=== PATIENT | female | born 1965 | race Caucasian/White ===

== ENCOUNTER → 2017-09-23 | Outpatient (CLI) | payer OTHER ==
--- NOTE | 2017-09-23 11:33 | RADIOLOGY IMAGING REPORT ---
FACILITY: [facility] - [place] PATIENT NAME: Maryan Parker : 1965 MR: [id number] V: [id number] EXAM DATE: ORDERING PHYSICIAN: SURINDER TIMMONS TECHNOLOGIST: Location: [facility] - [place] Patient: Maryan Parker : 1965 Visit/Account:[id number] Date of Sevice: 09/23/2017 THYROID HISTORY: Right lobe of the thyroid is enlarged compared to the left. Abnormal thyroid labs. Mother wi th thyroid problems. COMPARISON STUDIES: None. FINDINGS: THYROID SIZE Right lobe: 5.4 x 2.1 x 3.3 cm Left lobe: 4.2 x 1.2 x 1.1 cm Isthmus: 0.3 cm THYROID NODULES Right lobe: Heterogeneous solid and cystic nodule involving most the right lobe of the thyroid measur es 4.0 x 1.8 x 2.8 cm and has increased vascular flow. Contained within this dominant nodule is a cir cumscribed, hypoechoic 1.3 x 1.1 cm nodule or pseudonodule (image 26). Left lobe: None. Isthmus: None. THYROID VASCULARITY: Normal. IMPRESSION: 1. 4 cm right thyroid nodule with very low suspicion features, containing a 1.3 cm circumscribed, hyp oechoic nodule or pseudonodule. REFERENCE: 2015 [place] [employer] Management Guidelines for Adult Patients with Thyroid Nodules and D ifferentiated Thyroid Cancer: The [place] [employer] Guidelines Task Force on Thyroid Nodul es and Differentiated Thyroid Cancer. SONOGRAPHIC PATTERNS: * Benign: Purely cystic nodules (no solid component); estimated risk of malignancy <1 percent; no bi opsy recommended. * Very Low Suspicion: Spongiform or partially cystic nodules without any of the sonographic features described in low, intermediate, or high suspicion patterns; estimated risk of malignancy <3 percent; consider FNA at > 2 cm (Observation without FNA is also a reasonable option). * Low Suspicion: Isoechoic or hyperechoic solid nodule, or partially cystic nodule with eccentric so lid areas, without microcalcification, irregular margin or ETE (extra-thyroidal extension), or taller than wide shape; estimated risk of malignancy 5-10 percent; recommend FNA at >1.5 cm. * Intermediate Suspicion: Hypoechoic solid nodule with smooth margins without microcalcifications, E TE (extra-thyroidal extension), or taller than wide shape; estimated risk of malignancy 10-20 percent ; recommend FNA at > 1 cm. * High Suspicion: Solid hypoechoic nodule or solid hypoechoic component of a partially cystic nodule with one or more of the following features: irregular margins (infiltrative, microlobulated), microc alcifications, taller than wide shape, rim calcifications with small extrusive soft tissue component, evidence of ETE (extra-thyroidal extension); estimated risk of malignancy >70-90 percent; recommend FNA at > 1 cm. NOTES: * Although a sonographically suspicious subcentimeter thyroid nodule without evidence of extrathyroi jarvis extension or sonographically suspicious lymph nodes may be observed with close sonographic follow -up rather than pursuing immediate FNA, patient age and preference may modify decision-making. * A > 50% interval increase in nodule volume and/or development of new suspicious sonographic featur es are felt to be a valid reasons for potential re-aspiration of a nodule previously shown to have be nign FNA cytology. Report Dictated By: Denise Diego at 09/23/2017 11:23 AM Report E-Signed By: Denise Diego at 09/23/2017 11:28 AM WSN:[id number]
--- NOTE | 2017-09-26 17:24 | RADIOLOGY IMAGING REPORT ---
FACILITY: [facility] PATIENT NAME: ZARA MACKAY : [id number] MR: [id number] V: [id number] EXAM DATE: ORDERING PHYSICIAN: SURINDER TIMMONS TECHNOLOGIST: Lynnette Awan PROCEDURE:BILATERAL DIGITAL SCREENING MAMMOGRAM WITH CAD ASSISTED INTERPRETATION & 3D TOMOSYNTHESIS COMPARISON:Prior mammograms 10/10/09. INDICATIONS:screening FINDINGS: Very dense heterogeneous fibroglandular tissue is seen throughout the breasts. The parenchymal pattern has remained stable allowing for difference in mammographic technique & patient positioning. There is no evidence of malignant appearing mass, malignant appearing calcifications or other secondary sign of malignancy in either breast. DIAGNOSTIC CATEGORY 1--NEGATIVE. RECOMMENDATIONS: ROUTINE MAMMOGRAM AND CLINICAL EVALUATION. IMPRESSION: BIRADS 1: Negative. No significant abnormality is seen. Dictated by: Angelia Zendejas M.D. on 09/26/2017 at 15:13 Transcribed by: ELIU on 09/26/2017 at 15:17 Approved by: Angelia Zendejas M.D. on 09/26/2017 at 17:24 [facility]
== END ==
LOC: MAMO 03:09
PROVIDERS: ATTEND Family Medicine
DX: Z12.31 Encounter for screening mammogram for malignant neoplasm of breast (principal); E04.8 Other specified nontoxic goiter
CPT/HCPCS: 76536; 77063; 77067

== ENCOUNTER → 2017-11-17 | Day surgery (SDC) | payer OTHER ==
[~2017-11-17] VITALS: Ht 162.6 cm; Wt 53.5 kg
[~2017-11-17] MED LIST: ALB18R INH; BECL10.62 IH; CETI-176 PO; LIDOCAINE/SOD BICARB 8.4% SYR ID ONE; NORMOSOL R SOLN(*) 1000 ML BAG 1,000 ML IV PRN; PROPOFOL EMUL(*) 10MG/ML 20 ML 20 ML ONE
[2017-11-17 10:24] VITALS: BP 140/86
[2017-11-17 11:07] VITALS: BP 91/52
[2017-11-17 11:21] VITALS: BP 108/70
[2017-11-17 11:39] VITALS: BP 111/72
[2017-11-17 11:51] VITALS: BP_SYST 136; BP_SYST 143; BP_DIAS 78; BP_DIAS 84
== END ==
LOC: OR 01:46
PROVIDERS: ATTEND Family Medicine
DX: Z12.11 Encounter for screening for malignant neoplasm of colon (principal)
CPT/HCPCS: 00812; 45378; J2704

== ENCOUNTER → 2018-04-06 | Outpatient (CLI) | payer OTHER ==
[~2018-04-06] MED LIST changes: +ESTR42.5 PV; +FLUC150T40 PO; -LIDOCAINE/SOD BICARB 8.4% SYR ID ONE; +METR-1 PO; -NORMOSOL R SOLN(*) 1000 ML BAG 1,000 ML IV PRN; -PROPOFOL EMUL(*) 10MG/ML 20 ML 20 ML ONE
--- NOTE | 2018-04-06 11:57 | RADIOLOGY IMAGING REPORT ---
FACILITY: [facility] - [place] PATIENT NAME: Maryan Parker : 1965 MR: [id number] V: [id number] EXAM DATE: ORDERING PHYSICIAN: SURINDER TIMMONS TECHNOLOGIST: Location: [facility] - [place] Patient: Maryan Parker : 1965 Visit/Account:[id number] Date of Sevice: 04/06/2018 THYROID HISTORY: Thyroid nodule COMPARISON: September 23, 2017 FINDINGS: SIZE: Right lobe: 5.5 x 2 x 3 cm Left lobe: 4.4 x 1.1 x 1.2 cm Isthmus: 2 mm PARENCHYMA: Homogeneous. NODULES: Right lobe: * There is a hypervascular predominant a solid although partially cystic and well-circumscribed nodu le of mixed echogenicity in the mid to inferior right lobe measuring 4.1 x 1.9 x 2.7 cm. This contai ns a 1.3 cm well-circumscribed hypoechoic nodule or solid nodule. The findings are relatively unchan ged when compared to the prior study Left lobe: * None discrete. Isthmus: * None discrete. VASCULARITY: Increased on the right ADDITIONAL FINDINGS: None. IMPRESSION: There is a hypervascular predominant a solid nodule in the mid to inferior right lobe measuring 4.1 x 1.9 x 2.7 cm that appears relatively unchanged when compared the prior study. If This nodule has no t been previously biopsied and ultrasound-guided fine-needle aspiration recommended REFERENCE: 2015 [place] [employer] Management Guidelines for Adult Patients with Thyroid Nodules and D ifferentiated Thyroid Cancer: The [place] [employer] Guidelines Task Force on Thyroid Nodul es and Differentiated Thyroid Cancer. SONOGRAPHIC PATTERNS: * Benign: Purely cystic nodules (no solid component); estimated risk of malignancy <1 percent; no bi opsy recommended. * Very Low Suspicion: Spongiform or partially cystic nodules without any of the sonographic features described in low, intermediate, or high suspicion patterns; estimated risk of malignancy <3 percent; consider FNA at > 2 cm (Observation without FNA is also a reasonable option). * Low Suspicion: Isoechoic or hyperechoic solid nodule, or partially cystic nodule with eccentric so lid areas, without microcalcification, irregular margin or ETE (extra-thyroidal extension), or taller than wide shape; estimated risk of malignancy 5-10 percent; recommend FNA at >1.5 cm. * Intermediate Suspicion: Hypoechoic solid nodule with smooth margins without microcalcifications, E TE (extra-thyroidal extension), or taller than wide shape; estimated risk of malignancy 10-20 percent ; recommend FNA at > 1 cm. * High Suspicion: Solid hypoechoic nodule or solid hypoechoic component of a partially cystic nodule with one or more of the following features: irregular margins (infiltrative, microlobulated), microc alcifications, taller than wide shape, rim calcifications with small extrusive soft tissue component, evidence of ETE (extra-thyroidal extension); estimated risk of malignancy >70-90 percent; recommend FNA at > 1 cm. NOTES: * Although a sonographically suspicious subcentimeter thyroid nodule without evidence of extrathyroi jarvis extension or sonographically suspicious lymph nodes may be observed with close sonographic follow -up rather than pursuing immediate FNA, patient age and preference may modify decision-making. A > 50% interval increase in nodule volume and/or development of new suspicious sonographic features are felt to be a valid reasons for potential re-aspiration of a nodule previously shown to have benig n FNA cytology. Report Dictated By: Angelia Zendejas MD at 04/06/2018 11:47 AM Report E-Signed By: Angelia Zendejas MD at 04/06/2018 11:52 AM CLARENCEN:[place]
== END ==
LOC: US 01:19
PROVIDERS: ATTEND Family Medicine
DX: E04.2 Nontoxic multinodular goiter (principal)
CPT/HCPCS: 76536

== ENCOUNTER → 2018-04-06 | Outpatient (CLI) | payer OTHER | LOC: LAB 14:46 | PROVIDERS: ATTEND Obstetrics & Gynecology | DX: N89.8 Other specified noninflammatory disorders of vagina (principal) | CPT/HCPCS: 87210 ==

== ENCOUNTER 2018-04-17 11:05 | Outpatient (RCR) | payer OTHER ==
[2018-04-17 11:32] LABS: INR 0.99
--- NOTE | 2018-04-18 13:16 | RADIOLOGY IMAGING REPORT ---
FACILITY: [facility] - [place] PATIENT NAME: Maryan Parker : 1965 MR: [id number] V: [id number] EXAM DATE: ORDERING PHYSICIAN: SURINDER TIMMONS TECHNOLOGIST: Location: [facility] [place] Patient: Maryan Parker : 1965 Visit/Account:[id number] Date of Sevice: 04/18/2018 Ultrasound-guided fine-needle aspiration of the thyroid Indication: Right thyroid nodule. Comparison: Thyroid ultrasound dated 04/06/2018. Findings: After informed consent was obtained, the patient was prepped and draped in standard sterile fashion. A timeout was performed. Local anesthesia was obtained with 1% Xylocaine. Under ultrasound guidance, 4 fine-needle aspiration passes were performed through the right thyroid n odule. There are no immediate complications and the patient tolerated the procedure well. Impression: Successful fine-needle aspiration of the right thyroid nodule. Report Dictated By: Allan Benitez MD at 04/18/2018 1:10 PM Report E-Signed By: Allan Benitez MD at 04/18/2018 1:12 PM WSN:[id number]
== END 2018-04-18 18:00 | disposition home or self-care (01) ==
LOC: US 11:05 → EDSTATUS 04-18 11:05 → US 04-18 18:00
PROVIDERS: ATTEND Family Medicine
DX: Z12.31 Encounter for screening mammogram for malignant neoplasm of breast (principal); E04.8 Other specified nontoxic goiter
CPT/HCPCS: 10005; 36415; 76942; 85610; 88104; 88172